=== PATIENT | female | born 1960 | race Caucasian/White ===

== ENCOUNTER 2017-04-04 05:47 | Emergency (ER) | payer OTHER ==
[~2017-04-04] VITALS: Ht 162.6 cm; Wt 65.0 kg
[~2017-04-04 05:47] MED LIST: CALCCHW25 PO; DICY1TAB26 PO; LOMO PO; METO25CR PO; ZOFR4TAB3 SL
[2017-04-04 05:50] VITALS: BP 192/92; PULSE 86; RESP 16; TEMP 97.7; O2SAT 98
[2017-04-04 06:09] VITALS: BP 158/86; PULSE 70; RESP 16; O2SAT 99
[2017-04-04] MEDS ORDERED: SODIUM CHLOR 0.9% 1000 ML INJ 1,000 ML IV ONE (06:15)
[2017-04-04 06:22] VITALS: BP_SYST 145; BP_SYST 153; BP_SYST 158; BP_DIAS 72; BP_DIAS 78; BP_DIAS 80; RESP 16
[2017-04-04 06:32] LABS: BASOPHIL % 0.4 % (0.0-2.0); EOSINOPHIL # 0.1 TH/MM3 (0-0.4); EOSINOPHIL % 1.1 % (0.0-4.0); HEMATOCRIT 38.2 % (35.0-46.0); HEMOGLOBIN 13.8 GM/DL (11.6-15.3); LYMPH % 47.9 % (9.0-44.0); LYMPHOCYTE # 2.3 TH/MM3 (1.0-4.8); MEAN CELL VOLUME 84.7 FL (80.0-100.0); MEAN CORPUSCULAR HEMOGLOBIN 30.6 PG (27.0-34.0); MEAN PLATELET VOLUME 9.2 FL (7.0-11.0); MONO % 8.6 % (0.0-8.0); MONOCYTE # 0.4 TH/MM3 (0-0.9); PLATELET COUNT 186 TH/MM3 (150-450); RED BLOOD COUNT 4.51 MIL/MM3 (4.00-5.30); RED CELL DISTRIBUTION WIDTH 12.6 % (11.6-17.2); WHITE BLOOD COUNT 4.8 TH/MM3 (4.0-11.0)
[2017-04-04 06:35] LABS: MEAN CORPUSCULAR HGB CONC 36.1 % (32.0-36.0)
[2017-04-04 06:44] LABS: INTERNATIONAL NORMALIZED RATIO 1.1 RATIO; PROTHROMBIN TIME - PATIENT 10.7 SEC (9.8-11.6)
--- NOTE | 2017-04-04 06:44 | PD ---
HPI Chief Complaint: Cardiac Complaint Time Seen by Provider: 05:55 Travel History International Travel<30 days: No Contact w/Intl Traveler<30days: No Traveled to known affect area: No History of Present Illness HPI The patient is a 56 year old female who presents to the [facility] emergency department with a history of reportedly not feeling well for the last week. She reports that she has had intermittent sensations of palpitations, lightheaded sensation, extreme fatigue in spite of sleeping a full night of sleep, and a headache over her forehead and face. She denies having any nasal congestion, rhinorrhea, postnasal drip, or cough. She denies having any fever or chills. The patient according to the record does have a history of irregular heartbeat. She is unsure of the type. She reports that it was diagnosed during a stress test a few years ago. She was on metoprolol at that time, however this was discontinued in 2013. She denies having any chest pain or chest pressure associated with this. She denies having any vomiting or diarrhea. She denies having any neck pain or stiffness. She reports that prior to arrival she awoke from sound sleep with palpitations. She has not checked her pulse when this happens. On review of systems otherwise, the patient denies having any abdominal pain, urinary symptoms, one-sided weakness, slurred speech, facial droop, or difficulty with word finding ability. [facility] Past Medical History Narrative Medical The patient's past medical history is significant for having an irregular heartbeat in the past, history of thyroid enlargement that is monitored by ultrasound, however no thyroid supplementation. Heart Rhythm Problems: Yes (irregular heartbeat) Diminished Hearing: No Immunizations Current: Yes Tetanus Vaccination: Unknown Influenza Vaccination: No ?: Unknown Menopausal: Yes Tubal Ligation: Yes Past Surgical History Narrative Surgical The patient's past surgical history is significant for a bilateral tubal ligation. Social History Alcohol Use: No Tobacco Use: No Substance Use: No Allergies-Medications (Allergen,Severity, Reaction): Coded Allergies: Sulfa (Sulfonamide Antibiotics) (Unverified Allergy, Unknown, CRAMOS, ) amoxicillin (Unverified Allergy, Unknown, N/V, 04/04/17) aspirin (Unverified Allergy, Unknown, VOMITTING, 04/04/17) fluconazole (Unverified Allergy, Unknown, HIVES, 04/04/17) latex (Unverified Allergy, Unknown, RASH, 04/04/17) Reported Meds & Prescriptions Reported Meds & Active Scripts Active No Active Prescriptions or Reported Medications Review of Systems Except as stated in HPI: all other systems reviewed are Neg General / Constitutional: No: Fever Eyes: No: Visual changes HENT: Positive: Headaches, Lightheadedness, No: Rhinorrhea, Congestion Cardiovascular: Positive: Palpitations, No: Chest Pain or Discomfort, Dyspnea on exertion Respiratory: No: Shortness of Breath Gastrointestinal: No: Nausea, Vomiting, Diarrhea, Abdominal Pain Genitourinary: No: Urgency, Frequency, Dysuria Musculoskeletal: No: Pain Skin: No Rash Neurologic: Positive: Weakness (Generalized weakness and fatigue), Headache, No : Focal Abnormalities, Change in Mentation, Slurred Speech, Sensory Disturbance Psychiatric: No: Depression Endocrine: No: Polydipsia Hematologic/Lymphatic: No: Easy Bruising Physical Exam Narrative General: The patient is a well-developed well-nourished female in no acute distress. Head and Neck exam: Head is normocephalic atraumatic. Eyes: EOMI, pupils are equal round and reactive to light. Sinuses: No sinus tenderness on palpation. Nose: Midline septum with pink mucous membranes Mouth: Dentition unremarkable. Moist mucus membranes. Posterior oropharynx is not erythematous. No tonsillar hypertrophy. Uvula midline. Airway patent. Neck: No palpable lymphadenopathy. No nuchal rigidity. No thyromegaly. Cardiovascular: Regular rate and rhythm without murmurs, gallops, or rubs. No pulse deficit to the extremities on simultaneous auscultation and palpation of the radial artery. Lungs: Clear to auscultation bilaterally. No wheezes, rhonchi, or rales. Abdomen: Soft, without tenderness to palpation in all 4 quadrants of the abdomen. No guarding, rebound, or rigidity. No normal bowel sounds are audible. No tenderness on palpation of McBurney's point Extremities: No clubbing, cyanosis, or edema. 2+ pulses in all 4 extremities. No calf tenderness on palpation. Back: No spinous process tenderness to palpation. No costovertebral angle tenderness to palpation. Neurologic Exam: Cranial nerves 2-12 were intact on exam. Strength is 5/5 in all 4 extremities. No sensory deficits noted. Skin Exam: No rash noted. Intact skin that is warm and dry. Data Data Last Documented VS Vital Signs Date Time Temp Pulse Resp B/P (MAP) Pulse Ox O2 Delivery O2 Flow Rate FiO2 04/04/17 06:22 76 16 158/78 (104) 78 16 145/72 (96) 72 16 153/80 (104) 04/04/17 06:09 99 Room Air 04/04/17 05:50 97.7 Orders Orders Electrocardiogram (04/04/17 06:05) Complete Blood Count With Diff (04/04/17 06:05) Comprehensive Metabolic Panel (04/04/17 06:05) Creatine Kinase (Cpk) (04/04/17 06:05) Ckmb (Isoenzyme) Profile (04/04/17 06:05) Troponin I (04/04/17 06:05) B-Type Natriuretic Peptide (04/04/17 06:05) Prothrombin Time / Inr (Pt) (04/04/17 06:05) Act Partial Throm Time (Ptt) (04/04/17 06:05) Lipase (04/04/17 06:05) Urinalysis - C+S If Indicated (04/04/17 06:05) Magnesium (Mg) (04/04/17 06:05) Thyroid Stimulating Hormone (04/04/17 06:05) Chest, Single Ap (04/04/17 06:05) Ct Brain W/O Iv Contrast(Rout) (04/04/17 06:05) Iv Access Insert/Monitor (04/04/17 06:05) Ecg Monitoring (04/04/17 06:05) Oximetry (04/04/17 06:05) Orthostatic Vital Signs (04/04/17 06:05) Sodium Chlor 0.9% 1000 Ml Inj (Ns 1000 M (04/04/17 06:15) Labs Laboratory Tests Test 04/04/17 06:10 White Blood Count 4.8 TH/MM3 Red Blood Count 4.51 MIL/MM3 Hemoglobin 13.8 GM/DL Hematocrit 38.2 % Mean Corpuscular Volume 84.7 FL Mean Corpuscular Hemoglobin 30.6 PG Mean Corpuscular Hemoglobin Concent 36.1 % Red Cell Distribution Width 12.6 % Platelet Count 186 TH/MM3 Mean Platelet Volume 9.2 FL Neutrophils (%) (Auto) 42.0 % Lymphocytes (%) (Auto) 47.9 % Monocytes (%) (Auto) 8.6 % Eosinophils (%) (Auto) 1.1 % Basophils (%) (Auto) 0.4 % Neutrophils # (Auto) 2.0 TH/MM3 Lymphocytes # (Auto) 2.3 TH/MM3 Monocytes # (Auto) 0.4 TH/MM3 Eosinophils # (Auto) 0.1 TH/MM3 Basophils # (Auto) 0.0 TH/MM3 CBC Comment AUTO DIFF Prothrombin Time 10.7 SEC Prothromb Time International Ratio 1.1 RATIO Activated Partial Thromboplast Time 27.8 SEC MDM Medical Decision Making Medical Screen Exam Complete: Yes Emergency Medical Condition: Yes Medical Record Reviewed: Yes Differential Diagnosis Intracranial mass, versus intracranial hemorrhage, versus sinusitis, versus tension headache, versus migraine headache, versus endocrine abnormality Narrative Course During the course of the patient's emergency department visit, the patient's history, examination, and differential diagnosis were reviewed with the patient. The patient was placed on a manager telemetry with oximetry and frequent blood pressure monitoring. The patient had IV access obtained and blood work sent for analysis. Orthostatic vital signs were done and negative. The patient 's initial blood pressure was 192/92. Patient's blood pressure came down quickly on its own down to 158/86. The patient was initially provided normal saline 1 L IV fluid bolus. The patient's laboratory studies were reviewed and remarkable for a CBC that shows a white count of 4.8, hemoglobin 13.8, platelets 186 with 47.9 lymphocytes , monocytes 8.6, CMP is remarkable for an AST of 40, ALT of 61. Lipase is 174, PT 10.7, PTT 27.8. Radiology studies were reviewed and remarkable for a chest x-ray that shows no acute cardiopulmonary disease, CT scan of the brain shows no acute abnormality. No sinusitis on visualized sinuses according to the radiologist. The patient's cardiac enzymes, TSH, BNP are pending at the conclusion of my shift. The patient's case will be checked out to the oncoming emergency physician to disposition the patient based on the conclusion of her workup. Diagnosis Primary Impression: Headache Qualified Codes: R51 - Headache Additional Impressions: Generalized weakness Light-headed feeling Scripts No Active Prescriptions or Reported Meds Yesenia Scott MD Apr 04, 2017 06:44
--- NOTE | 2017-04-04 06:45 | RADRPT ---
EXAM DATE/TIME: 04/04/2017 06:22 [facility] COMPARISON: No previous studies available for comparison. INDICATIONS : Short of breath, chest pain. MEDICAL HISTORY : None. SURGICAL HISTORY : None. ENCOUNTER: Initial ACUITY: 1 day PAIN SCORE: 0/10 LOCATION: Bilateral chest FINDINGS: Portable AP view of the chest demonstrates a normal-sized cardiac silhouette. No effusion, consolidat ion, or pneumothorax is visualized. The bones and soft tissues demonstrate no acute abnormality. CONCLUSION: No acute cardiopulmonary abnormality is identified. Juwan Harrison MD on April 04, 2017 at 6:43 Board Certified Radiologist. This report was verified electronically.
--- NOTE | 2017-04-04 06:47 | RADRPT ---
EXAM DATE/TIME: 04/04/2017 06:27 [facility] COMPARISON: No previous studies available for comparison. INDICATIONS : Cephalgia. RADIATION DOSE: 56.35 CTDIvol (mGy) MEDICAL HISTORY : None SURGICAL HISTORY : Tubal ligation. ENCOUNTER: Initial ACUITY: 1 day PAIN SCALE: 5/10 LOCATION: cranial TECHNIQUE: Multiple contiguous axial images were obtained of the head. Using automated exposure control and adj ustment of the mA and/or kV according to patient size, radiation dose was kept as low as reasonably a chievable to obtain optimal diagnostic quality images. DICOM format image data is available electro nically for review and comparison. FINDINGS: CEREBRUM: The ventricles are normal. No evidence of midline shift, mass lesion, hemorrhage or acute infarction . No extra-axial fluid collections are seen. POSTERIOR FOSSA: The cerebellum and brainstem are intact. The 4th ventricle is midline. The cerebellopontine angle i s unremarkable. EXTRACRANIAL: Visualized sinuses are clear. SKULL: The calvaria is intact. No evidence of skull fracture. CONCLUSION: Negative noncontrast head CT. Juwan Harrison MD on April 04, 2017 at 6:44 Board Certified Radiologist. This report was verified electronically.
[2017-04-04 06:48] LABS: ALT (GPT) 61 U/L (10-53); AST (GOT) 40 U/L (15-37); BLOOD UREA NITROGEN 16 MG/DL (7-18); CALCIUM 8.8 MG/DL (8.5-10.1); CHLORIDE 102 MEQ/L (98-107); CREATININE 0.66 MG/DL (0.50-1.00); GLOMERULAR FILTRATION RATE 93 ML/MIN (>89); GLUCOSE,RANDOM 94 MG/DL (74-106); SODIUM (NA) 138 MEQ/L (136-145)
[2017-04-04 06:57] LABS: ALKALINE PHOSPHATASE 105 U/L (45-117); TOTAL BILIRUBIN ADULT 0.6 MG/DL (0.2-1.0); TOTAL PROTEIN 7.7 GM/DL (6.4-8.2); TROPONIN I LESS THAN 0.02 NG/ML (0.02-0.05)
[2017-04-04] MEDS ORDERED: ACETAMINOPHEN 325 MG TAB PO ONE (07:00)
[2017-04-04 07:06] VITALS: BP 157/90; PULSE 73; RESP 20; O2SAT 100
[2017-04-04] MEDS ORDERED: KETOROLAC TROMETHAMINE 30 MG/ML (IVP) VIAL IV PUSH ONE (07:15)
[2017-04-04 07:27] LABS: BACTERIA, URINE MOD /hpf; BILIRUBIN, URINE NEG (NEG); BLOOD, URINE NEG (NEG); GLUCOSE,URINE NEG (NEG); KETONE, URINE NEG (NEG); NITRITE,URINE NEG (NEG); SQUAMOUS EPITHELIAL CELL URINE 1 /hpf (0-5); URINE COLOR LIGHT-YELLOW (YELLW/STRAW); URINE LEUKOCYTE ESTERASE NEG (NEG)
--- NOTE | 2017-04-04 14:31 | EKG ---
Date Performed: 04/04/2017 Time Performed: 06:02:13 PTAGE: 56 years EKG: Sinus rhythm NORMAL ECG NO PREVIOUS TRACING DOCTOR: Rufus Hdez Interpretating Date/Time 04/04/2017 14:29:29
== END 2017-04-04 07:53 | disposition home or self-care (01) ==
LOC: NEPE 05:47
DX: R51 Headache (principal); R53.1 Weakness; R42 Dizziness and giddiness; R00.2 Palpitations; R07.9 Chest pain, unspecified; R06.02 Shortness of breath
CPT/HCPCS: 70450; 71045; 80053; 81001; 82550; 83690; 83735; 83880; 84443; 84484; 85025; 85610; 85730; 87086; 93005; 96360; 96361; 99285; J1885; J7030